=== PATIENT | male | born 1965 | race African-American/Black ===

== ENCOUNTER 2022-02-20 19:50 | Emergency (ER) | payer OTHER ==
[2022-02-20] MEDS ORDERED: Ketorolac Tromethamine 30 MG/ML VIAL ONE (20:10)
== END 2022-02-20 22:40 ==
LOC: ERS 19:50
DX: M25.562 Pain in left knee (principal); Y92.811 Bus as the place of occurrence of the external cause; I10 Essential (primary) hypertension; E11.9 Type 2 diabetes mellitus without complications; E78.5 Hyperlipidemia, unspecified; K21.9 Gastro-esophageal reflux disease without esophagitis
CPT/HCPCS: 96372; J1885